=== PATIENT | female | born 1950 | race Caucasian/White ===

== ENCOUNTER 2020-05-29 00:50 | Outpatient (CLI) | payer MEDICARE, SELFPAY ==
[2020-05-29 18:46] LABS: SARS-CoV-2 RNA PCR Negative
== END 2020-05-29 00:51 | disposition home or self-care (01) ==
LOC: ANHCOVIDDT 00:50
PROVIDERS: PCP Emergency Medicine; Visit Provider Internal Medicine Gastroenterology
DX: Z01.812 Encounter for preprocedural laboratory examination (principal); Z20.822 Contact with and (suspected) exposure to COVID-19
CPT/HCPCS: C9803; U0003; U0005

== ENCOUNTER 2020-06-01 01:54 | Day surgery (SDC) | payer MEDICARE, SELFPAY ==
[2020-05-20 09:31] VITALS: BMI 24.2
[2020-06-01 09:00] VITALS: BP 112/65; PULSE 126; RESP 20; TEMP 37; O2SAT 100
[2020-06-01] MEDS: LACTATED RINGERS 1,000 ML 150 ML IV CONT (09:10)
--- NOTE | 2020-06-01 09:35 | WPDANESEPPF ---
Anes - Initial Pre Proc Eval Procedure: Operation Date: 06/01/20 10:00 Proposed Procedures p Screening Colonoscopy - Jaime Calle MD Date/Time: 06/01/20 09:35 Surgeon: Jaime Calle MD Pre Op Diagnosis: Neoplasm Screening Patient Data Age: 69 Gender: F Height: 5 ft 6 in Weight: 71 kg Last Vital Signs Temp 98.6 F 06/01/20 09:00 Pulse 126 H 06/01/20 09:00 Resp 20 06/01/20 09:00 BP 112/65 06/01/20 09:00 Pulse Ox 100 06/01/20 09:00 Allergies Allergy/AdvReac Type Severity Reaction Status Date / Time No Known Allergies Allergy Verified 06/01/20 08:58 Home Medications Medication Instructions Recorded Confirmed Type duloxetine 60 mg capsule,delayed 60 mg PO DAILY #30 cap 04/12/20 05/20/20 Rx release alprazolam 0.5 mg PO TID 05/20/20 06/01/20 History [id number]-vgmndkqazqgfi-xbyogetj 2 tablet PO BID 05/20/20 05/20/20 History [Excedrin Migraine] diphenhydramine HCl [Benadryl] 50 mg PO HS 05/20/20 05/20/20 History losartan 100 mg tablet 100 mg PO DAILY #90 tablet 05/24/20 06/01/20 Rx Patient hx anesthesia problems: none Family hx anesthesia problems: none PMFSH Past Medical History Medical History (Updated 04/12/20 @ 11:08 by Israel Humphrey MD) Breast lump Bronchitis Cancer Chicken pox FHx: migraine headaches Mumps Pneumonia Surgical History Surgical History (Updated 04/12/20 @ 10:12 by Autumn Moreira) H/O bilateral mastectomy Family History Family History (Updated 04/12/20 @ 10:13 by Autumn Moreira) Father , 52 Diabetes mellitus Mother , 83 Alzheimers disease Social History Social History (Updated 04/12/20 @ 10:14 by Autumn Moreira) Social History: Patient drinks 1 cup of coffee and 3 diet sodas per day Smoking packs per day: 1 Smoking cigarettes per day: 20.0 Years smoked: 50 Smoking pack-years: 50.00 Smoking status: Current every day smoker Tobacco type: cigarettes Alcohol intake: former Substance use: never Substance use type: does not use Living arrangements: with family Spiritual care concerns: No Anes - Eval Final PreProcedure Day of Procedure 06/01/20 09:35 Patient weight: overweight Heart: regular rate and rhythm Lungs: clear to auscultation Airway: Mallampati scale class II (poor dentition; some loose in upper front) Neurological: alert and oriented Last oral intake: >/= 8 hours ASA classification: III Emergent: no Anesthetic plan: proceed Anesthesia type and monitoring: general GIVS and standard monitoring Informed Consent: The patient's anesthetic plan and its attendant risks and benefits were discussed with the patient/family/POA. Questions were solicited and answers provided to the satisfaction of the patient/family/POA.
--- NOTE | 2020-06-01 09:47 | PM.HPGS ---
History of Present Illness History of Present Illness Consent: Risks, benefits, and alternatives have been discussed and questions answered. Patient agrees to proceed with procedure. Chief complaint: Neoplasm Screening Narrative: Beatris Duong is a 69 year old female with positive cologuard, never had a colonoscopy Review of Systems Constitutional: Constitutional: Denies headache(s) and Denies weakness Eyes: Eyes: Denies blurry vision ENT: Reports Normal hearing present, Denies headache(s) and Denies neck pain Cardiovascular: Cardiovascular: Denies chest pain and Denies dyspnea Respiratory: Respiratory: Denies dyspnea Gastrointestinal: Gastrointestinal: Reports no additional gastrointestinal complaints Genitourinary: Genitourinary: Denies dysuria Musculoskeletal: Musculoskeletal: Denies neck pain Integumentary/Breasts: Skin/Breast: Denies dry skin Neurologic: Reports Normal hearing present, Denies headache(s) and Denies weakness Psychiatric: Psychiatric: Denies anxiety Endocrine: Endocrine: Denies change in body appearance Hematologic/Lymphatic: Hematologic/Lymphatic: Denies easy bleeding Allergic/Immunologic: Allergic/Immunologic: Denies urticaria PMFSH Past Medical History Medical History (Updated 06/01/20 @ 09:48 by Jaime Calle MD) Breast lump Bronchitis Cancer Chicken pox FHx: migraine headaches Mumps Pneumonia Positive colorectal cancer screening using Cologuard test Surgical History Surgical History (Updated 04/12/20 @ 10:12 by Autumn Moreira) H/O bilateral mastectomy Family History Family History (Updated 04/12/20 @ 10:13 by Autumn Moreira) Father , 52 Diabetes mellitus Mother , 83 Alzheimers disease Social History Social History (Updated 04/12/20 @ 10:14 by Autumn Moreira) Social History: Patient drinks 1 cup of coffee and 3 diet sodas per day Smoking packs per day: 1 Smoking cigarettes per day: 20.0 Years smoked: 50 Smoking pack-years: 50.00 Smoking status: Current every day smoker Tobacco type: cigarettes Alcohol intake: former Substance use: never Substance use type: does not use Living arrangements: with family Spiritual care concerns: No Meds Home Medications and Allergies Home Medications Medication Instructions Recorded Confirmed Type duloxetine 60 mg capsule,delayed 60 mg PO DAILY #30 cap 04/12/20 05/20/20 Rx release alprazolam 0.5 mg PO TID 05/20/20 06/01/20 History [id number]-fxpworsjhhrdz-dmzodupp 2 tablet PO BID 05/20/20 05/20/20 History [Excedrin Migraine] diphenhydramine HCl [Benadryl] 50 mg PO HS 05/20/20 05/20/20 History losartan 100 mg tablet 100 mg PO DAILY #90 tablet 05/24/20 06/01/20 Rx Allergies Allergy/AdvReac Type Severity Reaction Status Date / Time No Known Allergies Allergy Verified 06/01/20 08:58 Vital Signs Vital Signs - 24 hr 06/01/20 09:00 Temperature 98.6 F Pulse Rate 126 H Respiratory Rate 20 Blood Pressure 112/65 Pulse Oximetry 100 Exam Const: General: comfortable and no acute distress HENMT: General nose exam: Normal nares present Eyes: General: appearance normal, both eyes and all related structures Neck: Neck: no JVD Resp: Auscultation: clear to auscultation bilaterally Cardio: Rate: regular rate Rhythm: regular rhythm GI: Inspection: non-distended GI Palp: Yes Soft to palpation Skin: General skin exam: normal color Neuro: General: gait normal Speech: normal speech Extrem: General: normal to inspection Psych: Mental Status: mental status grossly normal Assessment and Plan Assessment and plan (1) Positive colorectal cancer screening using Cologuard test: Code(s): R19.5 - Other fecal abnormalities Status: Acute Assessment and Plan: will proceed with colonoscopy
[2020-06-01 10:07] VITALS: BP 76/35; PULSE 94; RESP 17; O2SAT 98
[2020-06-01 10:17] VITALS: BP 75/38; PULSE 82; RESP 15; O2SAT 100
[2020-06-01 10:27] VITALS: BP 96/58; PULSE 79; RESP 20; O2SAT 100
== END 2020-06-01 10:49 | disposition home or self-care (01) ==
PROVIDERS: PCP Emergency Medicine; Visit Provider Internal Medicine Gastroenterology
PROC: 0DJD8ZZ Inspection of Lower Intestinal Tract, Via Natural or Artificial Opening Endoscopic (ICD-10-PCS; CPT 45378; principal; 2020-06-01 10:00)
DX: R19.5 Other fecal abnormalities (principal); D12.8 Benign neoplasm of rectum; K64.8 Other hemorrhoids; F17.210 Nicotine dependence, cigarettes, uncomplicated
CPT/HCPCS: 45385; 88305; C9803; J2704; J7120; U0003; U0005